=== PATIENT | male | born 1940 | race Caucasian/White ===

== ENCOUNTER → 2021-02-07 | Outpatient (CLI) | payer MEDICARE, BC ==
--- NOTE | 2021-02-09 00:35 | ECWPNPC ---
PATIENT NAME: FEDE MORRISON : 1940 GENDER: MALE VISIT DATE: 02/07/2021 DISCHARGE DATE: 02/07/21 1219 VISIT LOCKED DATE TIME: PHYSICIAN: ADAM FISHER RESOURCE: ADAM FISHER REASON FOR APPOINTMENT 1. URGENT REFERRAL NECK PAIN OCCIPITAL NEURALGIA HISTORY OF PRESENT ILLNESS DEPRESSION SCREENING: PHQ-2 (2015 EDITION) LITTLE INTEREST OR PLEASURE IN DOING THINGS?NOT AT ALL FEELING DOWN, DEPRESSED, OR HOPELESS?NOT AT ALL TOTAL SCORE0 GENERAL: 80-YEAR-OLD GENTLEMAN BEING REFERRED BY [facility] FOR SEVERE RIGHT SIDED NECK PAIN. ACCOMPANIED IN THE EXAM ROOM WITH HIS . PATIENT IS IN SEVERE DISCOMFORT AND IN TEARS DURING THE VISIT. HE DID NOT TAKE ANY PAIN MEDICATIONS PRIOR TO COMING BECAUSE HE WANTED US TO SEE HOW MUCH PAIN HE IS IN. PAIN BEGAN WITHOUT PRECIPITATING EVENT APPROXIMATELY 3 MONTHS AGO. IT SEEMED TO GET BETTER WITH PHYSICAL THERAPY AND THEN BECAME INTENSE AGAIN A FEW WEEKS AGO. PAIN IS LOCATED ALONG THE RIGHT LATERAL BASE OF CERVICAL REGION LEADING UP TO OCCIPITAL AREA. PAIN IS AGGRAVATED WITH FLEXION. CURRENTLY USING HYDROCODONE 5/325 PERIODICALLY FOR SEVERE PAIN EPISODES WITH VERY LITTLE RELIEF. ALSO IS TAKING GABAPENTIN 100MG BID, TIZANIDINE AND TRAMADOL WITH SMALL AMOUNT OF IMPROVEMENT. HAS HAD EXTENSIVE IMAGING OF THE NECK AND BRAIN WITHOUT SIGNIFICANT FINDINGS. HE IS UNABLE TO DO AN MRI DUE TO METAL FRAGMENTS IN HIS EYE THAT WAS PICKED UP ON CT IMAGING OF THE BRAIN. DENIES RECENT FEVER OR ILLNESS OR SUDDEN WEIGHT LOSS. DENIES BOWEL OR BLADDER INCONTINENCE. - - -. FALL RISK SCREENING: SCREENING ONE FALL DURING THE WINTER TIME, SLIP ON THE ICE ON HES WAY TO THE MAIL BOX , DID NOT GO THE ER, NO MAJOR INJUIRES. PAIN SCREENING: PATIENT HAS A COMPLAINT OF ACUTE OR CHRONIC PAIN :YES LOCATION OF PAIN:NECK INTENSITY OF PAIN (SCALE OF 1 TO 10):10 WHAT DOES YOUR PAIN FEEL LIKE:ACHING, SHARP, STABBING, TENDER DURATION:CONTINOUS, CONSTANT, ALL DAY, AWAKENS FROM SLEEP PAIN IS INCREASED BY:OTHERS IT DOES NOT MATTER WHAT HE DOES THE PAIN IS ALWAYS THERE PAIN IS DECREASED BY:OTHERS HEAT AND ICE MOSTLY NURSING NOTE: - - -. PAIN CENTER INTAKE QUESTIONS: DO YOU HAVE A HISTORY OF MRSA? :NO DO YOU TAKE A BLOOD THINNERS? :NO DO YOU HAVE ANY BLEEDING DISORDERS? :NO ANY NEW NUMBNESS OR WEAKNESS IN YOUR LEGS OR ARMS? :NO ANY PACEMAKER,DEFIBRILLATOR, OR DORSAL COLUMN STIMULATOR? :NO DO YOU HAVE ANY RASHES OR OPEN SORES? :NO RASH ON LEFT WRIST ARE YOU ALLERGIC TO IV DYE? :NO ARE YOU DIABETIC? :NO ANY NEW PROBLEMS WITH YOUR MEDICATIONS? :NO HAVE YOU RECEIVED A VACCINE IN THE PAST 30 DAYS? :NO MODERNA 1ST : 09/23/2020 2ND : 10/21/2020 DO YOU PLAN TO RECEIVE A VACCINE IN THE NEXT 21 DAYS? :NO DO YOU NEED ANY PRESCRIPTION? :NO DO YOU TAKE ANY IMMUNOSUPPRESSIVE MEDICATIONS? :NO IS THERE A CHANCE YOU COULD BE ? :NO ARE YOU BREAST FEEDING? :NO CURRENT MEDICATIONS TAKING COLACE 100 MG CAPSULE 1 CAPSULE NEEDED ORALLY ONCE A DAY TAKING IBUPROFEN 800 MG TABLET 1 TABLET WITH FOOD OR MILK NEEDED ORALLY THREE TIMES A DAY TAKING MULTIVITAMIN - TABLET 1 TABLET ORALLY ONCE A DAY TAKING TYLENOL 325 MG CAPSULE 1 CAPSULE NEEDED ORALLY EVERY 6 HRS TAKING VESICARE 10 MG TABLET 1 TABLET ORALLY ONCE A DAY TAKING VITAMIN D (CHOLECALCIFEROL) 25 MCG (1000 UT) CAPSULE 1 CAPSULE ORALLY ONCE A DAY TAKING AMLODIPINE BESYLATE 10 MG TABLET 1 TABLET ORALLY ONCE A DAY TAKING HYDROCHLOROTHIAZIDE 12.5 MG CAPSULE 1 TABLET IN THE MORNING ORALLY ONCE A DAY TAKING TIZANIDINE HCL 4 MG TABLET 1 TABLET NEEDED ORALLY THREE TIMES A DAY TAKING TRAMADOL HCL 50 MG TABLET 1 TABLET NEEDED ORALLY ONCE A DAY TAKING GABAPENTIN 100 MG CAPSULE 1 CAPSULE ORALLY TWICE TIMES DAILY NEEDED TAKING HYDROCODONE-ACETAMINOPHEN 5-325 MG TABLET 1 TABLET NEEDED ORALLY EVERY 6 HRS TAKING VOLTAREN-XR 75MG TAB NEEDED NOT-TAKING CELEBREX 100 MG CAPSULE 1 CAPSULE WITH FOOD ORALLY ONCE A DAY NOT-TAKING DICLOFENAC SODIUM 1 % GEL DIRECTED EXTERNALLY FOUR TIMES DAILY MEDICATION LIST REVIEWED AND RECONCILED WITH THE PATIENT PAST MEDICAL HISTORY HYPERTENSION SEVERE NECK PAIN T.U.R FOR BPH ONE FALL DURING THE WINTER TIME, SLIP ON THE ICE ON HES WAY TO THE MAIL BOX , DID NOT GO THE ER, NO MAJOR INJUIRES. ALLERGIES BACTRIM: DIARRHEA, FEVER - SIDE EFFECTS SURGICAL HISTORY CATARCT SURG BOTH EYES [id number] FAMILY HISTORY FATHER: ALIVE MOTHER: SIBLINGS: ALIVE SON(S): ALIVE DAUGHTER(S): UNKNOWN 2 BROTHER(S) , 1 SISTER(S) - HEALTHY. 1 SON(S) - HEALTHY. SOCIAL HISTORY GENERAL: TOBACCO USE ARE YOU A:NONSMOKER NEVER SMOKED LATEX QUESTIONNAIRE LATEX ALLERGY : HAVE YOU EVER DEVELOPED ANY TYPE OF REACTION AFTER HANDLING LATEX PRODUCTS SUCH RUBBER GLOVES, CONDOMS, DIAPHRAGMS, BALLOONS, SOCKS, OR UNDERWEAR?NO LATEX ALLERGY : HAVE YOU EVER DEVELOPED ANY TYPE OF REACTION DURING OR AFTER DENTAL APPOINTMENT, VAGINAL/RECTAL EXAMINATION, SURGICAL PROCEDURE, OR ANY OTHER EXPOSURE?NO LATEX RISK : HAVE YOU EVER HAD ANY DIFFICULTY BREATHING OR HIVES AFTER EATING OR HANDLING ANY FRUITS, OR VEGETABLES; SUCH KIWI, BANANAS, STONE FRUITS, OR CHESTNUTSNO LATEX RISK : DO YOU HAVE A PREVIOUS PERSONAL HISTORY OF MORE THAN NINE SURGERIES, SPINA BIFIDA, OR REPEATED CATHERIZATIONS? NO LATEX RISK : ARE YOU FREQUENTLY EXPOSED TO LATEX PRODUCTS IN YOUR OCCUPATION?NO DATE ASKED : 02/07/2021 ALCOHOL USE: YES, BEER LAST NIGHT, VERY RARELY. RECREATIONAL DRUG USE DRUG USE?NO LANGUAGE LANGUAGES SPOKEN:GERMAN LEARNING BARRIERS / SPECIAL NEEDS CHANGE FROM LAST VISIT?NO BARRIERS TO LEARNING?NO HEARING IMPAIRED?YES : LITTLE BIT OF HEARING LOST VISION IMPAIRED?YES :CORRECTIVE LENSES COGNITIVELY IMPAIRED?NO READINESS TO LEARN?YES LEARNING PREFERENCES?YES :BOOKLETS, HANDOUTS LEARNING CAPABILITIES PRESENT?YES EMOTIONAL BARRIERS?NO SPECIAL DEVICES?NO CHIEF CARDIOPULMONARY TECHNOLOGIST NEEDED?NO HIS WILL HELP HIM HOSPITALIZATION/MAJOR DIAGNOSTIC PROCEDURE SEE ABOVE REVIEW OF SYSTEMS CONSTITUTIONAL: ANY RECENT FEVER NO . CHILLS NO . WEIGHT CHANGE OF UNKNOWN REASONS NO . GASTROENTEROLOGY: NEW UNEXPLAINABLE CHANGES IN BOWEL CONTROL NO . CONSTIPATION NO . GENITOURINARY: ANY NEW CHANGE IN BLADDER CONTROL? NO . NEUROLOGY: NEW ONSET DIZZINESS OR NEUROLOGICAL CHANGES NOT MENTIONED NO . NEW NUMBNESS OR PAIN PATTERNS NOT MENTIONED AND PERTINENT TO TODAY'S VISIT NO . CARDIOLOGY: NEW CHEST PRESSURE NO . PATIENT DENIES NO . RESPIRATORY: UNEXPLAINABLE COUGH NO . NEW SHORTNESS OF BREATH NO . VITAL SIGNS WT 181 LBS, HT 68 IN, BMI 27.52 INDEX, BP 180/81 MM HG, HR 90 /MIN, RR 18 /MIN, TEMP 98.5 F, OXYGEN SAT % 96%, SAFE IN ENV? (Y/N) YES, NA INITIALS IN 11:20T.SANDY MA, PATIENT STATED THAT THE PATIENT HAVE NOT TAKING HIS BLOOD PRESSURE MEDICATION THIS MORNING. EXAMINATION GENERAL EXAMINATION: GENERAL ALERT,APPEARS VERY UNCOMFORTABLE. PSYCH WEEPY,AGITATED. FACE: SQUINTING HIS EYES/WINCING FREQUENTLY DUE TO SEVERE PAIN.. NECK:NO LYMPHADENOPATHY, SUPPLE, NO THYROMEGALLY. LUNGS:CLEAR TO AUSCULTATION BILATERALLY, NO WHEEZES, RHONCHI, RALES. HEART:NO MURMURS, REGULAR RATE AND RHYTHM. MUSCULOSKELETAL: MUSCLE STRENGTH TESTING 5/5 BILATERAL UPPER/LOWER EXTREMITIES. CERVICAL: HYPERSENSATIVE TO LIGHT PALPATION OVER RIGHT NECK AND OCCIPITAL NERVE. DIAGNOSTIC TESTS REVIEWED CT CERVICAL SPINE-12/18/2020 CT HEAD/NON [id number]-7-11-2021. 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 TODAY I HAVE TAKEN OVER MEDICATION MANAGEMENT FOR SEVERE PAIN HE IS EXPERIENCING. RECOMMEND INCREASING GABAPENTIN TO 300 MG ONE IN THE MORNING, GABAPENTIN 100 MG MID DAY AND 300 MG AT NIGHT. RECOMMEND INCREASING HYDROCODONE TO 10/325 ONE 3 TIMES DAILY. STOP TRAMADOL. CONSIDER ADDING TOPAMAX. PROCEDURE CODES FA211 ESTABILISHED PATIENT [facility] CHARGE DISPOSITION & COMMUNICATION FOLLOW UP DR SMITH F/U TO CONSIDER INJECTION WITH IV SEDATION (REASON: IV SEDATION AND PROCEDURE/OCCIPITAL NERVE BLOCK VERSUS TRIGGER POINT INJECTION TO RIGHT NECK. ) ELECTRONICALLY SIGNED BY JUVE LAUREN ON 02/08/2021 AT 12:41 PM EDT DISCLAIMER : THIS IS A VISIT SUMMARY EXTRACTED FROM THE [facility] CHART. IT IS NOT A COPY OF THE [facility] PROGRESS NOTE. VANDA
== END ==
LOC: M PAIN 11:15
PROVIDERS: ATTEND Nurse Practitioner Family
DX: M54.81 Occipital neuralgia (principal); I10 Essential (primary) hypertension; M54.2 Cervicalgia; N40.0 Benign prostatic hyperplasia without lower urinary tract symptoms; Z98.41 Cataract extraction status, right eye; Z98.42 Cataract extraction status, left eye; Z79.891 Long term (current) use of opiate analgesic; Z79.899 Other long term (current) drug therapy

== ENCOUNTER → 2021-03-04 | Outpatient (CLI) | payer MEDICARE, BC | LOC: M LABSMTC 13:26 | PROVIDERS: ATTEND Anesthesiology | DX: Z01.818 Encounter for other preprocedural examination (principal) ==

== ENCOUNTER → 2021-03-04 | Outpatient (CLI) | payer MEDICARE, BC ==
--- NOTE | 2021-03-09 02:27 | ECWPNPC ---
PATIENT NAME: FEDE MORRISON : 1940 GENDER: MALE VISIT DATE: 03/04/2021 DISCHARGE DATE: 03/04/21 1339 VISIT LOCKED DATE TIME: PHYSICIAN: ANGEL SMITH MD RESOURCE: ANGEL SMITH MD REASON FOR APPOINTMENT 1. IV SEDATION AND PROCEDURE/OCCIPITAL NERVE BLOCK VERSUS TRIGGER POINT INJECTION TO RIGHT NECK. HISTORY OF PRESENT ILLNESS GENERAL: 80-YEAR-OLD MALE PATIENT WITH A HISTORY OF NECK PAIN AND HEADACHES. THE PATIENT DESCRIBES THE PAIN BURNING, SHARP AND STABBING WITH A PAIN SCORE RANGING FROM 8-10/10 AT THE RIGHT TEMPORAL OCCIPITAL AREA. THIS STARTED 2 MONTHS AGO SPONTANEOUSLY. THIS IS AFFECTING HIS ABILITY TO DO ANY ACTIVITIES. HE CANNOT FUNCTION, HE CANNOT MOVE, HE CANNOT CONCENTRATE. HE RECEIVES MEDICATIONS THAT ARE NOT REALLY HELPING. HE HAD A TRIGGER POINT INJECTION THAT HELPED HIM FOR ABOUT 24 HOURS. THE PATIENT DENIES HISTORY OF TRAUMA OVER THE AREA. THE PATIENT DENIES NECK PAIN. THE PATIENT DENIES PAIN DOWN THE ARMS. FALL RISK SCREENING: SCREENING : MULTIPLE FALLS OVER THE LAST FEW MONTHS WITHOUT INJURY. PAIN SCREENING: PATIENT HAS A COMPLAINT OF ACUTE OR CHRONIC PAIN :YES LOCATION OF PAIN:HEAD, NECK INTENSITY OF PAIN (SCALE OF 1 TO 10):10 WHAT DOES YOUR PAIN FEEL LIKE:BURNING, SHARP, STABBING, SHOOTING, OTHER SENSATION OF TIGHTNESS OVER TOP OF HEAD DURATION:INTERMITTENT, BRIEF EPISODIC, INTENSE PAIN IS INCREASED BY:OTHERS IS SOMETIMES PRECIPITATED BY SHAKING HEAD LEFT TO RIGHT OR UP AND DOWN. NURSING NOTE: -. PAIN CENTER INTAKE QUESTIONS: DO YOU HAVE A HISTORY OF MRSA? :NO DO YOU TAKE A BLOOD THINNERS? :NO DO YOU HAVE ANY BLEEDING DISORDERS? :NO ANY NEW NUMBNESS OR WEAKNESS IN YOUR LEGS OR ARMS? :NO ANY PACEMAKER,DEFIBRILLATOR, OR DORSAL COLUMN STIMULATOR? :NO DO YOU HAVE ANY RASHES OR OPEN SORES? :NO ARE YOU ALLERGIC TO IV DYE? :NO ARE YOU DIABETIC? :NO ANY NEW PROBLEMS WITH YOUR MEDICATIONS? :NO HAVE YOU RECEIVED A VACCINE IN THE PAST 30 DAYS? :NO DO YOU PLAN TO RECEIVE A VACCINE IN THE NEXT 21 DAYS? :NO DO YOU NEED ANY PRESCRIPTION? :NO DO YOU TAKE ANY IMMUNOSUPPRESSIVE MEDICATIONS? :NO DO YOU HAVE ANY KIDNEY OR LIVER DISEASE? :NO IS THERE A CHANCE YOU COULD BE ? :NO ARE YOU BREAST FEEDING? :NO CURRENT MEDICATIONS TAKING COLACE 100 MG CAPSULE 1 CAPSULE NEEDED ORALLY ONCE A DAY TAKING IBUPROFEN 800 MG TABLET 1 TABLET WITH FOOD OR MILK NEEDED ORALLY THREE TIMES A DAY TAKING MULTIVITAMIN - TABLET 1 TABLET ORALLY ONCE A DAY TAKING TYLENOL 325 MG CAPSULE 1 CAPSULE NEEDED ORALLY EVERY 6 HRS TAKING VESICARE 10 MG TABLET 1 TABLET ORALLY ONCE A DAY TAKING VITAMIN D (CHOLECALCIFEROL) 25 MCG (1000 UT) CAPSULE 1 CAPSULE ORALLY ONCE A DAY TAKING AMLODIPINE BESYLATE 10 MG TABLET 1 TABLET ORALLY ONCE A DAY TAKING HYDROCHLOROTHIAZIDE 12.5 MG CAPSULE 1 TABLET IN THE MORNING ORALLY ONCE A DAY TAKING GABAPENTIN 100 MG CAPSULE 1 CAPSULE ORALLY TWICE TIMES DAILY NEEDED TAKING HYDROCODONE-ACETAMINOPHEN 5-325 MG TABLET 1 TABLET NEEDED ORALLY EVERY 6 HRS TAKING GABAPENTIN 100 MG CAPSULE 1 CAPSULE ORALLY TID TAKING HYDROCODONE-ACETAMINOPHEN 10-325 MG TABLET 1 TABLET NEEDED ORALLY Q8H PRN MDD3 TAKING IBUPROFEN 800 MG TABLET 1 TABLET WITH FOOD OR MILK NEEDED ORALLY THREE TIMES A DAY NOT-TAKING CELEBREX 100 MG CAPSULE 1 CAPSULE WITH FOOD ORALLY ONCE A DAY NOT-TAKING DICLOFENAC SODIUM 1 % GEL DIRECTED EXTERNALLY FOUR TIMES DAILY NOT-TAKING TIZANIDINE HCL 4 MG TABLET 1 TABLET NEEDED ORALLY THREE TIMES A DAY NOT-TAKING TRAMADOL HCL 50 MG TABLET 1 TABLET NEEDED ORALLY ONCE A DAY NOT-TAKING VOLTAREN-XR 75MG TAB NEEDED NOT-TAKING GABAPENTIN 300 MG CAPSULE 1 CAPSULE ORALLY AM AND PM MEDICATION LIST REVIEWED AND RECONCILED WITH THE PATIENT PAST MEDICAL HISTORY HYPERTENSION SEVERE NECK PAIN T.U.R FOR BPH ONE FALL DURING THE WINTER TIME, SLIP ON THE ICE ON HES WAY TO THE MAIL BOX , DID NOT GO THE ER, NO MAJOR INJUIRES. ALLERGIES BACTRIM: DIARRHEA, FEVER - SIDE EFFECTS SURGICAL HISTORY CATARCT SURG BOTH EYES [id number] HOSPITALIZATION/MAJOR DIAGNOSTIC PROCEDURE SEE ABOVE REVIEW OF SYSTEMS CONSTITUTIONAL: ANY RECENT FEVER NO . CHILLS NO . WEIGHT CHANGE OF UNKNOWN REASONS NO . GASTROENTEROLOGY: NEW UNEXPLAINABLE CHANGES IN BOWEL CONTROL NO . CONSTIPATION NO . GENITOURINARY: ANY NEW CHANGE IN BLADDER CONTROL? NO . NEUROLOGY: NEW ONSET DIZZINESS OR NEUROLOGICAL CHANGES NOT MENTIONED NO . NEW NUMBNESS OR PAIN PATTERNS NOT MENTIONED AND PERTINENT TO TODAY'S VISIT NO . CARDIOLOGY: NEW CHEST PRESSURE NO . PATIENT DENIES NO . RESPIRATORY: UNEXPLAINABLE COUGH NO . NEW SHORTNESS OF BREATH NO . VITAL SIGNS WT 179.0 LBS, HT 68 IN, BMI 27.21 INDEX, BP 178/84 MM HG, HR 78 /MIN, RR 18 /MIN, TEMP 97.1 F, OXYGEN SAT % 98%, SAFE IN ENV? (Y/N) Y, NA INITIALS AW 1132, REVIEWED BY: KALPESH. EXAMINATION GENERAL EXAMINATION: THE PATIENT IS ALERT, ORIENTED TIMES THREE AND COOPERATIVE. LUNGS ARE CLEAR TO AUSCULTATION. HEART SHOWS REGULAR RHYTHM, NO MURMURS AND NO GALLOPS. THERE IS TENDERNESS WHEN I PUT PRESSURE OVER THE RIGHT OCCIPITAL AREA, THIS CREATES PAIN OVER THE DISTRIBUTION OF THE GREATER AND LESSER OCCIPITAL AREA. THERE IS NOT TENDERNESS OVER THE TMJ AREA OR THE NECK. THE PATIENT SEEMS TO KEEP THE HEAD TO THE LEFT SIDE. HE REPORTS SOME GROUNDING SENSATION OVER THE NECK WHEN HE MOVES TO THE RIGHT. WHEN I MOVED THE HEAD TO THE RIGHT, IT RECREATED THE PAIN. WHEN THE PATIENT MOVES HIS HEAD TO THE LEFT, IT DOES NOT CREATE PAIN. CT DATED 12/18/2020 IS SHOWING SOME ARTHRITIS CHANGES. 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 MORRISON. I WOULD LIKE TO REQUEST AUTHORIZATION FOR A TRIGGER POINT INJECTION RIGHT NECK AND RIGHT GREATER AND LESSER OCCIPITAL NERVE BLOCKS, STARTING WITH THE TRIGGER POINT. WE WILL WATCH HIM AND THEN POSSIBLY WORK WITH HIS NECK OVER THE FACETS AFTER THAT. I WOULD LIKE TO REFER HIM FOR A NEUROLOGICAL EVALUATION. THE PATIENT REPORTS UNDERSTANDING AND AGREES WITH THE PLAN. I, JULIO C MUNIZ, DOCUMENTED THE ABOVE INFORMATION ACTING A SCRIBE FOR DR. SMITH. I HAVE REVIEWED THE ABOVE DOCUMENT, WRITTEN BY JULIO C MUNIZ, REACTOR OPERATOR, AND I VERIFY THAT IT IS ACCURATE. [facility] REASON: FACET ARTHROPATHY, CERVICAL REF[facility]AL [facility] REASON: OTHERS CLINICAL NOTES: PATIENT IS OBSERVED DURING ASSESSMENT TO HAVE A BFEIF PAIN OVER RIGHT EAR, FOLLOWED SUDDENLY BY INTENSE PAIN OVER TOP OF HEAD, PRECIPITATING PATIENT RESPONSE OF CRYING UNCONTROLLABY. THIS EPISODE OF PAIN LASTED APROXIMATELY THREE MINUTES BEFORE "COOLING DOWN". PATIENT WAS BRIEFLY CONVERSANT, AND EPISODE REPEATED ITSELF WITH A SHORTER EPISODE. REFERRAL TO: REASON:EVALUATE FOR POSSIBLE TRIGMINAL NEURALGIA PROCEDURE CODES FA211 ESTABILISHED PATIENT [facility] CHARGE 11006 OFFICE/OUTPATIENT VISIT EST DISPOSITION & COMMUNICATION FOLLOW UP REQUEST AUTHORIZATION FOR A TRIGGER POINT INJECTION RIGHT NECK AND REQUEST AUTH FOR RIGHT GREATER AND LESSER OCCIPITAL NERVE BLOCKS (REASON: REQUEST AUTHORIZATION FOR A TRIGGER POINT INJECTION RIGHT NECK AND REQUEST AUTH FOR RIGHT GREATER AND LESSER OCCIPITAL NERVE BLOCKS) ELECTRONICALLY SIGNED BY ANGEL SMITH MD, MD ON 03/08/2021 AT 11:29 AM EDT DISCLAIMER : THIS IS A VISIT SUMMARY EXTRACTED FROM THE [facility] CHART. IT IS NOT A COPY OF THE [facility] PROGRESS NOTE. VANDA
== END ==
LOC: M PAIN 11:15
PROVIDERS: ATTEND Anesthesiology
DX: M54.81 Occipital neuralgia (principal); M47.812 Spondylosis without myelopathy or radiculopathy, cervical region; G50.0 Trigeminal neuralgia; Z88.1 Allergy status to other antibiotic agents; Z79.899 Other long term (current) drug therapy; Z01.812 Encounter for preprocedural laboratory examination; Z20.822 Contact with and (suspected) exposure to COVID-19
CPT/HCPCS: G0463; U0003

== ENCOUNTER → 2021-03-09 | Outpatient (CLI) | payer MEDICARE, BC ==
[~2021-03-09] MED LIST: BUPIVACAINE HCL 0.25% 10ML VIAL As Ordered ONE; BUPIVACAINE HCL 0.25% 30ML VIAL As Ordered ONE; LIDOCAINE 1% SDV 30ML VIAL As Ordered ONE; NORCO, ANEXSIA 5/325MG TABLET (HYDROcodone/ACETAMINOPHEN) As Ordered ONE; TRIAMCINOLONE ACETONIDE SUSP 40 MG/ML VIAL (J3301) As Ordered ONE; diazePAM 2 MG TAB As Ordered ONE; diphenhydrAMINE 25MG CAP As Ordered ONE
--- NOTE | 2021-03-11 23:38 | ECWPNPC ---
PATIENT NAME: FEDE MORRISON : 1940 GENDER: MALE VISIT DATE: 03/09/2021 DISCHARGE DATE: 03/09/21 1311 VISIT LOCKED DATE TIME: PHYSICIAN: ANGEL SMITH MD RESOURCE: ANGEL SMITH MD REASON FOR APPOINTMENT 1. TRIGGER POINT INJECTION RIGHT NECK HISTORY OF PRESENT ILLNESS GENERAL: -. FALL RISK SCREENING: SCREENING : NO FALLS REPORTED IN THE LAST YEAR. PAIN SCREENING: PATIENT HAS A COMPLAINT OF ACUTE OR CHRONIC PAIN :YES LOCATION OF PAIN:HEAD INTENSITY OF PAIN (SCALE OF 1 TO 10):10 WHAT DOES YOUR PAIN FEEL LIKE:ACHING, BURNING, SHARP, SHOOTING DURATION:INTERMITTENT PAIN IS INCREASED BY:OTHERS PAIN IS DECREASED BY:OTHERS NURSING NOTE: -. PAIN CENTER INTAKE QUESTIONS: DO YOU HAVE A HISTORY OF MRSA? :NO DO YOU TAKE A BLOOD THINNERS? :NO DO YOU HAVE ANY BLEEDING DISORDERS? :NO ANY NEW NUMBNESS OR WEAKNESS IN YOUR LEGS OR ARMS? :NO ANY PACEMAKER,DEFIBRILLATOR, OR DORSAL COLUMN STIMULATOR? :NO DO YOU HAVE ANY RASHES OR OPEN SORES? :NO ARE YOU ALLERGIC TO IV DYE? :NO ARE YOU DIABETIC? :NO ANY NEW PROBLEMS WITH YOUR MEDICATIONS? :NO HAVE YOU RECEIVED A VACCINE IN THE PAST 30 DAYS? :NO DO YOU PLAN TO RECEIVE A VACCINE IN THE NEXT 21 DAYS? :NO DO YOU TAKE ANY IMMUNOSUPPRESSIVE MEDICATIONS? :NO ANY HISTORY OF SEIZURES? :NO ANY HISTORY OF CARDIAC ISSUES OR EVENTS? :NO DO YOU HAVE ANY KIDNEY OR LIVER DISEASE? :NO DO YOU HAVE SLEEP APNEA? :YES DO YOU WEAR A CPAP?NO ANY RECENT HEAD INJURY? :NO DO YOU HAVE ANY NEW INFECTIONS? :NO IS THERE A CHANCE YOU COULD BE ? :NO ARE YOU BREAST FEEDING? :NO WHEN DID YOU LAST EAT? : -03/08/21@ WHEN DID YOU LAST DRINK? : -03/09/21 @ 0745 WHAT DID YOU LAST DRINK? : - NAME OF PERSON DRIVING YOU HOME? : - DO YOU HAVE ANY OTHER QUESTIONS OR CONCERNS? : - CURRENT MEDICATIONS TAKING COLACE 100 MG CAPSULE 1 CAPSULE NEEDED ORALLY ONCE A DAY TAKING IBUPROFEN 800 MG TABLET 1 TABLET WITH FOOD OR MILK NEEDED ORALLY THREE TIMES A DAY TAKING MULTIVITAMIN - TABLET 1 TABLET ORALLY ONCE A DAY TAKING TYLENOL 325 MG CAPSULE 1 CAPSULE NEEDED ORALLY EVERY 6 HRS TAKING VESICARE 10 MG TABLET 1 TABLET ORALLY ONCE A DAY TAKING VITAMIN D (CHOLECALCIFEROL) 25 MCG (1000 UT) CAPSULE 1 CAPSULE ORALLY ONCE A DAY TAKING AMLODIPINE BESYLATE 10 MG TABLET 1 TABLET ORALLY ONCE A DAY TAKING HYDROCHLOROTHIAZIDE 12.5 MG CAPSULE 1 TABLET IN THE MORNING ORALLY ONCE A DAY TAKING GABAPENTIN 100 MG CAPSULE 1 CAPSULE ORALLY TWICE TIMES DAILY NEEDED TAKING HYDROCODONE-ACETAMINOPHEN 5-325 MG TABLET 1 TABLET NEEDED ORALLY EVERY 6 HRS TAKING GABAPENTIN 100 MG CAPSULE 1 CAPSULE ORALLY TID TAKING HYDROCODONE-ACETAMINOPHEN 10-325 MG TABLET 1 TABLET NEEDED ORALLY Q8H PRN MDD3 TAKING IBUPROFEN 800 MG TABLET 1 TABLET WITH FOOD OR MILK NEEDED ORALLY THREE TIMES A DAY NOT-TAKING CELEBREX 100 MG CAPSULE 1 CAPSULE WITH FOOD ORALLY ONCE A DAY NOT-TAKING DICLOFENAC SODIUM 1 % GEL DIRECTED EXTERNALLY FOUR TIMES DAILY NOT-TAKING TIZANIDINE HCL 4 MG TABLET 1 TABLET NEEDED ORALLY THREE TIMES A DAY NOT-TAKING TRAMADOL HCL 50 MG TABLET 1 TABLET NEEDED ORALLY ONCE A DAY NOT-TAKING VOLTAREN-XR 75MG TAB NEEDED NOT-TAKING GABAPENTIN 300 MG CAPSULE 1 CAPSULE ORALLY AM AND PM MEDICATION LIST REVIEWED AND RECONCILED WITH THE PATIENT PAST MEDICAL HISTORY HYPERTENSION SEVERE NECK PAIN T.U.R FOR BPH ONE FALL DURING THE WINTER TIME, SLIP ON THE ICE ON HES WAY TO THE MAIL BOX , DID NOT GO THE ER, NO MAJOR INJUIRES. ALLERGIES BACTRIM: DIARRHEA, FEVER - SIDE EFFECTS SOCIAL HISTORY GENERAL: TOBACCO USE ARE YOU A:NONSMOKER NEVER SMOKED LATEX QUESTIONNAIRE LATEX ALLERGY : HAVE YOU EVER DEVELOPED ANY TYPE OF REACTION AFTER HANDLING LATEX PRODUCTS SUCH RUBBER GLOVES, CONDOMS, DIAPHRAGMS, BALLOONS, SOCKS, OR UNDERWEAR?NO LATEX ALLERGY : HAVE YOU EVER DEVELOPED ANY TYPE OF REACTION DURING OR AFTER DENTAL APPOINTMENT, VAGINAL/RECTAL EXAMINATION, SURGICAL PROCEDURE, OR ANY OTHER EXPOSURE?NO DATE ASKED : 02/07/2021 LATEX RISK : HAVE YOU EVER HAD ANY DIFFICULTY BREATHING OR HIVES AFTER EATING OR HANDLING ANY FRUITS, OR VEGETABLES; SUCH KIWI, BANANAS, STONE FRUITS, OR CHESTNUTSNO LATEX RISK : DO YOU HAVE A PREVIOUS PERSONAL HISTORY OF MORE THAN NINE SURGERIES, SPINA BIFIDA, OR REPEATED CATHERIZATIONS? NO LATEX RISK : ARE YOU FREQUENTLY EXPOSED TO LATEX PRODUCTS IN YOUR OCCUPATION?NO ALCOHOL USE: YES, BEER LAST NIGHT, VERY RARELY. RECREATIONAL DRUG USE DRUG USE?NO LANGUAGE LANGUAGES SPOKEN:OMANI LEARNING BARRIERS / SPECIAL NEEDS CHANGE FROM LAST VISIT?NO BARRIERS TO LEARNING?NO HEARING IMPAIRED?YES VISION IMPAIRED?YES COGNITIVELY IMPAIRED?NO : LITTLE BIT OF HEARING LOST :CORRECTIVE LENSES READINESS TO LEARN?YES LEARNING PREFERENCES?YES :BOOKLETS, HANDOUTS LEARNING CAPABILITIES PRESENT?YES EMOTIONAL BARRIERS?NO SPECIAL DEVICES?NO ASSISTANT MANAGER PT NEEDED?NO HIS WILL HELP HIM VITAL SIGNS WT 179.8 LBS, HT 68 IN, BMI 27.34 INDEX, BP 156/88 MM HG, HR 78 /MIN, RR 18 /MIN, TEMP 97.2 F, OXYGEN SAT % 98%, NA INITIALS SC 10:06. EXAMINATION GENERAL: THE PATIENT IS ALERT, ORIENTED TIMES THREE AND COOPERATIVE. LUNGS ARE CLEAR TO AUSCULTATION. HEART SHOWS REGULAR RHYTHM, NO MURMURS AND NO GALLOPS. 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 TREATMENT OCCIPITAL NEURALGIA OF RIGHT SIDE MEDICATION: PAIN VALIUM TAB 2MG ORALLY (DIAZEPAM)SAJAN TELLES 03/09/2021 10:33:42 AM > VERIFIED. RONALDO MUHAMMAD 03/09/2021 10:37:02 AM > ADMINISTERED COMPLETION OF PROCEDURAL VISIT WHEN MEETS CRITERIARONALDO MUHAMMAD 03/09/2021 1:46:42 PM > CRITERIA MET @ 1310 MED: PAIN BENADRYL TAB 25MG ORALLY DIPHENHYDRAMINESAJAN TELLES 03/09/2021 10:33:52 AM > VERIFIED. RONALDO MUHAMMAD 03/09/2021 10:37:43 AM > ADMINISTERED MED: PAIN NORCO TABLET 5MG/325MG ORALLY HYDROCODONE/ACETAMINOPHENSAJAN TELLES 03/09/2021 10:34:03 AM > VERIFIED. RONALDO MUHAMMAD 03/09/2021 10:38:05 AM > ADMINISTERED DILEONARDO,JULIO C 03/09/2021 11:35:25 AM > SECOND DOSE ORDERED, VERIFIED BY ARLIN SHORT 03/09/2021 11:36:44 AM > VERIFIED. RONALDO MUHAMMAD 03/09/2021 11:40:59 AM > 2ND DOSE ADMINSTERED RONALDO MUHAMMAD 03/09/2021 12:35:56 PM > 2ND DOSE ADMINISTERED PROCEDURES PAIN NURSING RECORD PROCEDURE IN ROOM 0955, PHYSICIAN IN ROOM 1139, START 1141, FINISH 1215, PHYSICIAN OUT OF ROOM 1215, OUT OF ROOM 1310, ECG N/A, PATIENT SHIELDED N/A, SAFETY STRAP N/A, PREP ALCOHOL DR. SMITH, DRESSING N/A LOC: 1. ALERT, ORIENTEDSABINARONALDO 03/09/2021 11:39:45 AM > RESP: 1. REGULAR, NO DYSPNEASABINAD.[facility] 03/09/2021 11:39:59 AM > COLOR: 1. PINKSABINAD.[facility] 03/09/2021 11:40:04 AM > SKIN: 1. WARM, DRYSABINAD.[facility] 03/09/2021 11:40:09 AM > POSITION: 5. SITTINGSABINAD.[facility] 03/09/2021 11:40:16 AM > , 1. PRONE VITALS: EXIT VITALS HR 100, 153/94, 96%, R14, PAIN 10 1310 TBRADLEYRN NOTES Jesus MUHAMMAD RN COMPLETION OF PROCEDURE APPOINTMENT: POST PAIN 10, DRESSING SITE NO DRESSING, IV N/A, GAIT WHEELCHAIR, TEACHING COMPLETED, PATIENT ACKNOWLEDGES UNDERSTANDING YES, PROCEDURE APPOINTMENT COMPLETED AT 1310 PN TRIGGER POINT INJECTION WITH STEROIDS PRE PROCEDURE DIAGNOSIS 1. MYALGIA 2. PAIN AT RIGHT NECK AREA POST PROCEDURE DIAGNOSIS 1. MYALGIA 2. PAIN AT RIGHT NECK AREA PROCEDURE TRIGGER POINT INJECTION AT RIGHT NECK AREA SURGEON DR. ANGEL SMITH LABORATORY OPERATIONS COORDINATOR NONE ANESTHESIA LOCAL PRE PROCEDURE NOTE THE PATIENT HAS A HISTORY OF CHRONIC PAIN AT THE RIGHT NECK AREA. I EVALUATED THE PATIENT AND REVIEWED THE CHART. THERE IS EVIDENCE OF BANDS OF TISSUE WITH RESTRICTION OF MOVEMENT AND PRESENCE OF TRIGGER POINT AT THE RIGHT NECK AREA. I WENT OVER THE RISKS, ALTERNATIVES, AND BENEFITS ASSOCIATED WITH THIS PROCEDURE. THE PATIENT WOULD LIKE TO PROCEED AND GIVE CONSENT TO PERFORMED THE PROCEDURE. THE PATIENT DENIES UNEXPLAINABLE WEIGHT LOSS, FEVER, CHILLS, OR NEW CHANGES IN URINARY OR BOWEL CONTROL. THE PATIENT IS COVID-19 NEGATIVE DESCRIPTION OF PROCEDURE THE PATIENT WAS BROUGHT TO THE PROCEDURE ROOM AND PLACED IN THE SITTING POSITION. THE AREA WAS CLEANED WITH ALCOHOL. THE PROCEDURE WAS DONE USING ASEPTIC STERILE TECHNIQUE. A TIMEOUT WAS PERFORMED WHERE THE CONSENTED SITE WAS VERIFIED WITH EVERYONE IN THE ROOM. USING A 25-GAUGE NEEDLE, TRIGGER POINTS WERE INJECTED AT THE RIGHT NECK AREA WITH A TOTAL OF 40 ML OF BUPIVACAINE 0.25% AND KENALOG 40 MG. LIDOCAINE 30 ML WAS INJECTED INTO THE NECK IN DIVIDED DOSES. THE MEDICATIONS WERE VERIFIED WITH THE NURSE. THERE WAS NO EVIDENCE OF BLOOD OR PARESTHESIA DURING THE PROCEDURE. THE PATIENT WAS SENT TO THE RECOVERY ROOM. THE PATIENT WAS MOVING THE EXTREMITIES AND DOING WELL. THERE WERE NO COMPLICATIONS DURING THE PROCEDURE. ESTIMATED BLOOD LOSS WAS LESS THAN 5 ML POST PROCEDURE NOTE WE PERFORMED A TRIGGER POINT WHICH I EXPANDED TO OTHER AREAS OF THE NECK. THE PATIENT WAS VERY UNCOMFORTABLE DURING THE PROCEDURE. I AM REQUESTING URGENT CONSULTS TO OTHER SPECIALTIES. I WILL TRY TO CONTACT HIS PRIMARY. THE PROCEDURE DONE WAS DISCUSSED WITH THE PATIENT. THE PATIENT WILL BE SEEN IN A FOLLOW UP IN THE NEXT FEW WEEKS. I AM LOOKING FOR LONG LASTING PAIN RELIEF FOR THE PATIENT WITH THIS INTERVENTION. INSTRUCTIONS WERE GIVEN, QUESTIONS WERE ANSWERED, AND THE PATIENT EXPRESSED UNDERSTANDING AND AGREES WITH THE PLAN. I, JULIO C MUNIZ, DOCUMENTED THE ABOVE INFORMATION ACTING A SCRIBE FOR DR. SMITH. I HAVE REVIEWED THE ABOVE DOCUMENT, WRITTEN BY JULIO C MUNIZ, INTERNAL CONTROL ANALYST, AND I VERIFY THAT IT IS ACCURATE PROCEDURE CODES [id number] INJ TRIGGER POINT 09/04 [facility] DISPOSITION & COMMUNICATION FOLLOW UP F/UP NEXT WEEK DR. Dykes (REASON: POST TRIGGER POINT INJECTION RIGHT NECK) ELECTRONICALLY SIGNED BY ANGEL SMITH MD, MD ON 03/11/2021 AT 09:46 AM EDT DISCLAIMER : THIS IS A VISIT SUMMARY EXTRACTED FROM THE [employer] CHART. IT IS NOT A COPY OF THE [employer] PROGRESS NOTE. MTDD
== END ==
LOC: M PAIN 10:00
PROVIDERS: ATTEND Anesthesiology
DX: M79.18 Myalgia, other site (principal); M54.81 Occipital neuralgia; M47.812 Spondylosis without myelopathy or radiculopathy, cervical region; G47.30 Sleep apnea, unspecified; Z88.1 Allergy status to other antibiotic agents; Z79.899 Other long term (current) drug therapy
CPT/HCPCS: 20552; J3301

== ENCOUNTER → 2021-03-10 | Outpatient (CLI) | payer MEDICARE, BC ==
--- NOTE | 2021-03-16 08:33 | ECWPNPC ---
PATIENT NAME: FEDE MORRISON : 1940 GENDER: MALE VISIT DATE: 03/10/2021 DISCHARGE DATE: 03/10/21 0000 VISIT LOCKED DATE TIME: PHYSICIAN: ANGEL SMITH MD RESOURCE: ANGEL SMITH MD REASON FOR APPOINTMENT 1. MED REVIEW PER DR. Dykes HISTORY OF PRESENT ILLNESS GENERAL: PERMISSION FROM PATIENT WAS RECEIVED TO DO TELEPHONE OFFICE VISIT. 80-YEAR-OLD MALE PATIENT WITH A HISTORY OF CHRONIC RIGHT NECK PAIN ASSOCIATED WITH HEADACHES. THE PATIENT DESCRIBES THE PAIN STABBING ON OCCASION, ACHING AND SHARP WITH A PAIN SCORE RANGING FROM 0-2/10 OVER THE NECK AND 1-4/10 OVER THE EAR. THE PATIENT DID A TRIGGER POINT INJECTION YESTERDAY. BEFORE DOING THE TRIGGER POINT, THE PATIENT WAS HAVING SEVERE PAIN WITH A PAIN SCORE OF 10/10 IN THE NECK AND HEAD AREA. THE PATIENT IS SIGNIFICANTLY MORE COMFORTABLE TODAY. IN TERMS OF MEDICATIONS, DURING THE LAST WEEK, THE PATIENT HAS BEEN USING HYDROCODONE 5/325 TWICE A DAY AND AT NIGHT ONE 10 MG TABLET. THE PATIENT HAS BEEN TAKING GABAPENTIN 100 MG 3 TIMES A DAY AND IBUPROFEN 800 MG TABLETS 3 TIMES A DAY AND FLEXERIL 10 MG TABLETS 3 TIMES A DAY. HE IS USING TIZANIDINE 2 MG TABLETS 2 TIMES A DAY. THE PATIENT WAS GOING TO HAVE A NECK MRI DONE BUT WHEN THEY WENT TO PERFORM THE STUDY, THEY DID AN X-RAY AND THEY FOUND A PIECE OF METAL NEAR HIS EYE SO THEY DECIDED NOT TO DO THE MRI. FALL RISK SCREENING: SCREENING : SLIPPED ON ICE IN WINTER, DIDN'T REQUIRE MEDICAL INTERVENTION.. PAIN SCREENING: PATIENT HAS A COMPLAINT OF ACUTE OR CHRONIC PAIN :YES LOCATION OF PAIN:HEAD, NECK "RIGHT ABOVE THE EAR" INTENSITY OF PAIN (SCALE OF 1 TO 10):6 WHAT DOES YOUR PAIN FEEL LIKE:SHARP, STABBING DURATION:ONLY WITH SPECIFIC ACTIVITIES PAIN IS INCREASED BY:ACTIVITIES, OTHERS PAIN IS DECREASED BY:OTHERS PLAN/GOALS/TREATMENT/INTERVENTION/FOLLOW UP:SEE PLAN NURSING NOTE: -. PAIN CENTER INTAKE QUESTIONS: DO YOU HAVE A HISTORY OF MRSA? :NO DO YOU TAKE A BLOOD THINNERS? :NO DO YOU HAVE ANY BLEEDING DISORDERS? :NO ANY NEW NUMBNESS OR WEAKNESS IN YOUR LEGS OR ARMS? :NO ANY PACEMAKER,DEFIBRILLATOR, OR DORSAL COLUMN STIMULATOR? :NO DO YOU HAVE ANY RASHES OR OPEN SORES? :NO ARE YOU ALLERGIC TO IV DYE? :NO ARE YOU DIABETIC? :NO ANY NEW PROBLEMS WITH YOUR MEDICATIONS? :NO HAVE YOU RECEIVED A VACCINE IN THE PAST 30 DAYS? :NO DO YOU PLAN TO RECEIVE A VACCINE IN THE NEXT 21 DAYS? :NO DO YOU TAKE ANY IMMUNOSUPPRESSIVE MEDICATIONS? :NO DO YOU HAVE ANY KIDNEY OR LIVER DISEASE? :NO IS THERE A CHANCE YOU COULD BE ? :NO ARE YOU BREAST FEEDING? :NO CURRENT MEDICATIONS TAKING COLACE 100 MG CAPSULE 1 CAPSULE NEEDED ORALLY ONCE A DAY TAKING IBUPROFEN 800 MG TABLET 1 TABLET WITH FOOD OR MILK NEEDED ORALLY THREE TIMES A DAY TAKING MULTIVITAMIN - TABLET 1 TABLET ORALLY ONCE A DAY TAKING TYLENOL 325 MG CAPSULE 1 CAPSULE NEEDED ORALLY EVERY 6 HRS TAKING VESICARE 10 MG TABLET 1 TABLET ORALLY ONCE A DAY TAKING VITAMIN D (CHOLECALCIFEROL) 25 MCG (1000 UT) CAPSULE 1 CAPSULE ORALLY ONCE A DAY TAKING AMLODIPINE BESYLATE 10 MG TABLET 1 TABLET ORALLY ONCE A DAY TAKING HYDROCHLOROTHIAZIDE 12.5 MG CAPSULE 1 TABLET IN THE MORNING ORALLY ONCE A DAY TAKING GABAPENTIN 100 MG CAPSULE 1 CAPSULE ORALLY TWICE TIMES DAILY NEEDED TAKING GABAPENTIN 100 MG CAPSULE 1 CAPSULE ORALLY TID TAKING HYDROCODONE-ACETAMINOPHEN 10-325 MG TABLET 1 TABLET NEEDED ORALLY Q8H PRN MDD3 TAKING IBUPROFEN 800 MG TABLET 1 TABLET WITH FOOD OR MILK NEEDED ORALLY THREE TIMES A DAY TAKING HYDROCODONE-ACETAMINOPHEN 5-325 MG TABLET 1 TABLET NEEDED ORALLY FOR PAIN EVERY 8 HRS ( MDD 3) NOT-TAKING CELEBREX 100 MG CAPSULE 1 CAPSULE WITH FOOD ORALLY ONCE A DAY NOT-TAKING DICLOFENAC SODIUM 1 % GEL DIRECTED EXTERNALLY FOUR TIMES DAILY NOT-TAKING TIZANIDINE HCL 4 MG TABLET 1 TABLET NEEDED ORALLY THREE TIMES A DAY NOT-TAKING TRAMADOL HCL 50 MG TABLET 1 TABLET NEEDED ORALLY ONCE A DAY NOT-TAKING VOLTAREN-XR 75MG TAB NEEDED NOT-TAKING GABAPENTIN 300 MG CAPSULE 1 CAPSULE ORALLY AM AND PM MEDICATION LIST REVIEWED AND RECONCILED WITH THE PATIENT PAST MEDICAL HISTORY HYPERTENSION SEVERE NECK PAIN T.U.R FOR BPH ONE FALL DURING THE WINTER TIME, SLIP ON THE ICE ON HES WAY TO THE MAIL BOX , DID NOT GO THE ER, NO MAJOR INJUIRES. ALLERGIES BACTRIM: DIARRHEA, FEVER - SIDE EFFECTS SOCIAL HISTORY GENERAL: TOBACCO USE ARE YOU A:NONSMOKER NEVER SMOKED LATEX QUESTIONNAIRE LATEX ALLERGY : HAVE YOU EVER DEVELOPED ANY TYPE OF REACTION AFTER HANDLING LATEX PRODUCTS SUCH RUBBER GLOVES, CONDOMS, DIAPHRAGMS, BALLOONS, SOCKS, OR UNDERWEAR?NO LATEX ALLERGY : HAVE YOU EVER DEVELOPED ANY TYPE OF REACTION DURING OR AFTER DENTAL APPOINTMENT, VAGINAL/RECTAL EXAMINATION, SURGICAL PROCEDURE, OR ANY OTHER EXPOSURE?NO LATEX RISK : HAVE YOU EVER HAD ANY DIFFICULTY BREATHING OR HIVES AFTER EATING OR HANDLING ANY FRUITS, OR VEGETABLES; SUCH KIWI, BANANAS, STONE FRUITS, OR CHESTNUTSNO LATEX RISK : DO YOU HAVE A PREVIOUS PERSONAL HISTORY OF MORE THAN NINE SURGERIES, SPINA BIFIDA, OR REPEATED CATHERIZATIONS? NO LATEX RISK : ARE YOU FREQUENTLY EXPOSED TO LATEX PRODUCTS IN YOUR OCCUPATION?NO DATE ASKED : 03/10/2021 ALCOHOL USE: YES, BEER LAST NIGHT, VERY RARELY. RECREATIONAL DRUG USE DRUG USE?NO CHEONDOISM [id number] PRESBYTERIAN LANGUAGE LANGUAGES SPOKEN:VIETNAMESE LEARNING BARRIERS / SPECIAL NEEDS CHANGE FROM LAST VISIT?NO BARRIERS TO LEARNING?NO HEARING IMPAIRED?YES : LITTLE BIT OF HEARING LOSS VISION IMPAIRED?YES :CORRECTIVE LENSES COGNITIVELY IMPAIRED?NO READINESS TO LEARN?YES LEARNING PREFERENCES?YES :BOOKLETS, HANDOUTS LEARNING CAPABILITIES PRESENT?YES EMOTIONAL BARRIERS?NO SPECIAL DEVICES?NO HEAD GOLF PROFESSIONAL NEEDED?NO HIS WILL HELP HIM OCCUPATION: RETIRED. MARITAL STATUS: . REVIEW OF SYSTEMS CONSTITUTIONAL: ANY RECENT FEVER NO . CHILLS NO . WEIGHT CHANGE OF UNKNOWN REASONS NO . GASTROENTEROLOGY: NEW UNEXPLAINABLE CHANGES IN BOWEL CONTROL NO . CONSTIPATION NO . GENITOURINARY: ANY NEW CHANGE IN BLADDER CONTROL? NO . NEUROLOGY: NEW ONSET DIZZINESS OR NEUROLOGICAL CHANGES NOT MENTIONED NO . NEW NUMBNESS OR PAIN PATTERNS NOT MENTIONED AND PERTINENT TO TODAY'S VISIT NO . CARDIOLOGY: NEW CHEST PRESSURE NO . PATIENT DENIES NO . RESPIRATORY: UNEXPLAINABLE COUGH NO . NEW SHORTNESS OF BREATH NO . EXAMINATION GENERAL: THE PATIENT IS ALERT, ORIENTED TIMES THREE AND COOPERATIVE. THIS IS A TELEPHONE VISIT. CT OF THE CERVICAL SPINE IS SHOWING OSTEOARTHRITIC CHANGES. 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 TREATMENT FACET ARTHROPATHY, CERVICAL CLINICAL NOTES: I DISCUSSED ALTERNATIVES WITH MR. MORRISON. I WOULD LIKE TO LOOK FURTHER INTO THE POSSIBLE METAL NEAR HIS EYE. WE WILL CALL [facility] OR [facility]. IN TERMS OF MEDICATION MANAGEMENT, IN THE LAST WEEK, THE PATIENT HAS BEEN USING HYDROCODONE 5/325 MG TWICE A DAY AND ONE 10 MG TABLET AT NIGHT. WITH THE PRESCRIPTION THAT I GAVE HIM YESTERDAY, THE PATIENT IS COVERED FOR THE NEXT SEVERAL WEEKS. I DISCUSSED WITH THE PATIENT THAT THIS MEDICATION CAN CAUSE RESPIRATORY DEPRESSION. HE SHOULD NOT DRINK WITH THIS MEDICATION. HE SHOULD NOT USE MACHINERY OR DRIVE WHILE ON THIS MEDICATION. THERE IS POTENTIAL FOR ADDICTION TO THIS MEDICATION. HE WILL NOT LET ANYONE KNOW THAT HE HAS THIS MEDICATION AND HE WILL KEEP IT IN A SAFE PLACE. IF THE PAIN COMES BACK, WE CAN WORK OVER THE FACET JOINTS. TOTAL TIME FOR THIS VISIT IS 32 MINUTES. THE PATIENT WILL FOLLOW UP NEXT WEEK. THE PATIENT REPORTS UNDERSTANDING AND AGREES WITH THE PLAN. I, JULIO C MUNIZ, DOCUMENTED THE ABOVE INFORMATION ACTING A SCRIBE FOR DR. SMITH. I HAVE REVIEWED THE ABOVE DOCUMENT, WRITTEN BY JULIO C MUNIZ, MISSION SUPPORT SPECIALIST, AND I VERIFY THAT IT IS ACCURATE. . PROCEDURE CODES [id number] TELEMEDICINE PHONE E/M BY PHYS 21-30 MIN DISPOSITION & COMMUNICATION FOLLOW UP F/UP NEXT WEEK (REASON: POST PROCEDURE) ELECTRONICALLY SIGNED BY ANGEL SMITH MD, MD ON 03/11/2021 AT 03:50 PM EDT DISCLAIMER : THIS IS A VISIT SUMMARY EXTRACTED FROM THE [employer] CHART. IT IS NOT A COPY OF THE [employer] PROGRESS NOTE. MAGOD
== END ==
LOC: M PAIN 12:40
PROVIDERS: ATTEND Anesthesiology
DX: M47.812 Spondylosis without myelopathy or radiculopathy, cervical region (principal); M54.81 Occipital neuralgia; G89.29 Other chronic pain; Z88.1 Allergy status to other antibiotic agents; Z79.899 Other long term (current) drug therapy

== ENCOUNTER → 2021-03-17 | Outpatient (CLI) | payer MEDICARE, BC ==
--- NOTE | 2021-03-19 00:22 | ECWPNPC ---
PATIENT NAME: FEDE MORRISON : 1940 GENDER: MALE VISIT DATE: 03/17/2021 DISCHARGE DATE: 03/17/21 1141 VISIT LOCKED DATE TIME: PHYSICIAN: ANGEL SMITH MD RESOURCE: ANGEL SMITH MD REASON FOR APPOINTMENT 1. POST TRIGGER POINT INJECTION RIGHT NECK HISTORY OF PRESENT ILLNESS GENERAL: 80-YEAR-OLD MALE PATIENT WITH A HISTORY OF RIGHT NECK PAIN AND HEADACHES. THE PATIENT HAS BEEN SUFFERING FROM THIS FOR SEVERAL MONTHS. WE ARE WORKING WITH THE SITUATION OF THE NECK PAIN AND HEADACHES. WE DID A TRIGGER POINT INJECTION OVER THE NECK LAST WEEK. THE PATIENT REPORTS GOOD PAIN RELIEF. HE CAN FUNCTION BETTER. THE PATIENT DESCRIBES THE PAIN ACHING AND BURNING WITH A PAIN SCORE RANGING FROM 5-8/10. HE IS STILL USING THE MEDIATIONS OF MOTRIN, HYDROCODONE, AND A MUSCLE RELAXANT. THIS IS AFFECTING HIS ABILITY TO REST AND DO ACTIVITIES SUCH GROCERY SHOPPING. FALL RISK SCREENING: SCREENING : 1 FALL REPORTED IN THE LAST YEAR - NONE SINCE LAST VISIT. PAIN SCREENING: PATIENT HAS A COMPLAINT OF ACUTE OR CHRONIC PAIN :YES LOCATION OF PAIN:HEAD, NECK INTENSITY OF PAIN (SCALE OF 1 TO 10):6 WHAT DOES YOUR PAIN FEEL LIKE:BURNING DURATION:CONTINOUS PAIN IS INCREASED BY:ACTIVITIES, OTHERS WALKING, AIR HITTING HIS HEAD PAIN IS DECREASED BY:USE OF PAIN MEDICATIONS, OTHERS ICE, HEAT NURSING NOTE: -. PAIN CENTER INTAKE QUESTIONS: DO YOU HAVE A HISTORY OF MRSA? :NO DO YOU TAKE A BLOOD THINNERS? :NO DO YOU HAVE ANY BLEEDING DISORDERS? :NO ANY NEW NUMBNESS OR WEAKNESS IN YOUR LEGS OR ARMS? :NO ANY PACEMAKER,DEFIBRILLATOR, OR DORSAL COLUMN STIMULATOR? :NO DO YOU HAVE ANY RASHES OR OPEN SORES? :NO ARE YOU ALLERGIC TO IV DYE? :NO ARE YOU DIABETIC? :NO ANY NEW PROBLEMS WITH YOUR MEDICATIONS? :NO HAVE YOU RECEIVED A VACCINE IN THE PAST 30 DAYS? :NO DO YOU PLAN TO RECEIVE A VACCINE IN THE NEXT 21 DAYS? :NO DO YOU NEED ANY PRESCRIPTION? :NO DO YOU TAKE ANY IMMUNOSUPPRESSIVE MEDICATIONS? :NO DO YOU HAVE ANY KIDNEY OR LIVER DISEASE? :NO IS THERE A CHANCE YOU COULD BE ? :NO ARE YOU BREAST FEEDING? :NO CURRENT MEDICATIONS TAKING GABAPENTIN 300 MG CAPSULE 1 CAPSULE ORALLY BEFORE BEDTIME TAKING COLACE 100 MG CAPSULE 1 CAPSULE NEEDED ORALLY ONCE A DAY TAKING MULTIVITAMIN - TABLET 1 TABLET ORALLY ONCE A DAY TAKING TYLENOL 325 MG CAPSULE 1 CAPSULE NEEDED ORALLY EVERY 6 HRS TAKING VESICARE 10 MG TABLET 1 TABLET ORALLY ONCE A DAY TAKING VITAMIN D (CHOLECALCIFEROL) 25 MCG (1000 UT) CAPSULE 1 CAPSULE ORALLY ONCE A DAY TAKING AMLODIPINE BESYLATE 10 MG TABLET 1 TABLET ORALLY ONCE A DAY TAKING HYDROCHLOROTHIAZIDE 25 MG TABLET 1 TABLET IN THE MORNING ORALLY ONCE A DAY TAKING GABAPENTIN 100 MG CAPSULE 1 CAPSULE ORALLY TWICE TIMES DAILY NEEDED TAKING IBUPROFEN 800 MG TABLET 1 TABLET WITH FOOD OR MILK NEEDED ORALLY THREE TIMES A DAY TAKING HYDROCODONE-ACETAMINOPHEN 5-325 MG TABLET 1 TABLET NEEDED ORALLY FOR PAIN EVERY 8 HRS ( MDD 3) NOT-TAKING CELEBREX 100 MG CAPSULE 1 CAPSULE WITH FOOD ORALLY ONCE A DAY NOT-TAKING DICLOFENAC SODIUM 1 % GEL DIRECTED EXTERNALLY FOUR TIMES DAILY NOT-TAKING TIZANIDINE HCL 4 MG TABLET 1 TABLET NEEDED ORALLY THREE TIMES A DAY NOT-TAKING TRAMADOL HCL 50 MG TABLET 1 TABLET NEEDED ORALLY ONCE A DAY NOT-TAKING VOLTAREN-XR 75MG TAB NEEDED NOT-TAKING IBUPROFEN 800 MG TABLET 1 TABLET WITH FOOD OR MILK NEEDED ORALLY THREE TIMES A DAY, NOTES: DUPLICATE NOT-TAKING GABAPENTIN 100 MG CAPSULE 1 CAPSULE ORALLY TID, NOTES: DUPLICATE NOT-TAKING HYDROCODONE-ACETAMINOPHEN 10-325 MG TABLET 1 TABLET NEEDED ORALLY Q8H PRN MDD3 MEDICATION LIST REVIEWED AND RECONCILED WITH THE PATIENT PAST MEDICAL HISTORY HYPERTENSION SEVERE NECK PAIN T.U.R FOR BPH ONE FALL DURING THE WINTER TIME, SLIP ON THE ICE ON HES WAY TO THE MAIL BOX , DID NOT GO THE ER, NO MAJOR INJUIRES. ALLERGIES BACTRIM: DIARRHEA, FEVER - SIDE EFFECTS SOCIAL HISTORY GENERAL: TOBACCO USE ARE YOU A:NONSMOKER NEVER SMOKED LATEX QUESTIONNAIRE LATEX ALLERGY : HAVE YOU EVER DEVELOPED ANY TYPE OF REACTION AFTER HANDLING LATEX PRODUCTS SUCH RUBBER GLOVES, CONDOMS, DIAPHRAGMS, BALLOONS, SOCKS, OR UNDERWEAR?NO LATEX ALLERGY : HAVE YOU EVER DEVELOPED ANY TYPE OF REACTION DURING OR AFTER DENTAL APPOINTMENT, VAGINAL/RECTAL EXAMINATION, SURGICAL PROCEDURE, OR ANY OTHER EXPOSURE?NO LATEX RISK : HAVE YOU EVER HAD ANY DIFFICULTY BREATHING OR HIVES AFTER EATING OR HANDLING ANY FRUITS, OR VEGETABLES; SUCH KIWI, BANANAS, STONE FRUITS, OR CHESTNUTSNO LATEX RISK : DO YOU HAVE A PREVIOUS PERSONAL HISTORY OF MORE THAN NINE SURGERIES, SPINA BIFIDA, OR REPEATED CATHERIZATIONS? NO LATEX RISK : ARE YOU FREQUENTLY EXPOSED TO LATEX PRODUCTS IN YOUR OCCUPATION?NO DATE ASKED : 03/10/2021 ALCOHOL USE: YES, BEER LAST NIGHT, VERY RARELY. RECREATIONAL DRUG USE DRUG USE?NO ORTHODOXY [id number] [facility] LANGUAGE LANGUAGES SPOKEN:YORUBA LEARNING BARRIERS / SPECIAL NEEDS CHANGE FROM LAST VISIT?NO BARRIERS TO LEARNING?NO HEARING IMPAIRED?YES : LITTLE BIT OF HEARING LOSS VISION IMPAIRED?YES :CORRECTIVE LENSES COGNITIVELY IMPAIRED?NO READINESS TO LEARN?YES LEARNING PREFERENCES?YES :BOOKLETS, HANDOUTS LEARNING CAPABILITIES PRESENT?YES EMOTIONAL BARRIERS?NO SPECIAL DEVICES?NO CABLE MECHANIC NEEDED?NO HIS WILL HELP HIM OCCUPATION: RETIRED. MARITAL STATUS: . REVIEW OF SYSTEMS CONSTITUTIONAL: ANY RECENT FEVER NO . CHILLS NO . WEIGHT CHANGE OF UNKNOWN REASONS NO . GASTROENTEROLOGY: NEW UNEXPLAINABLE CHANGES IN BOWEL CONTROL NO . CONSTIPATION NO . GENITOURINARY: ANY NEW CHANGE IN BLADDER CONTROL? NO . NEUROLOGY: NEW ONSET DIZZINESS OR NEUROLOGICAL CHANGES NOT MENTIONED NO . NEW NUMBNESS OR PAIN PATTERNS NOT MENTIONED AND PERTINENT TO TODAY'S VISIT NO . CARDIOLOGY: NEW CHEST PRESSURE NO . PATIENT DENIES NO . RESPIRATORY: UNEXPLAINABLE COUGH NO . NEW SHORTNESS OF BREATH NO . VITAL SIGNS WT 176.6 LBS, HT 68 IN, BMI 26.85 INDEX, BP 128/92 MM HG, HR 80 /MIN, RR 18 /MIN, TEMP 99.1 F, OXYGEN SAT % 97%, SAFE IN ENV? (Y/N) YES, NA INITIALS SC 14:14, REVIEWED BY: Eben GARZA RN. EXAMINATION GENERAL: THE PATIENT IS ALERT, ORIENTED TIMES THREE AND COOPERATIVE. LUNGS ARE CLEAR TO AUSCULTATION. HEART SHOWS REGULAR RHYTHM, NO MURMURS AND NO GALLOPS. THERE IS TENDERNESS OVER THE RIGHT CERVICAL AREA. CT SCAN DATED 12/18/2020 SHOWS FACET ARTHROPATHY CHANGES. 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 MORRISON. WE AGREE ON REQUEST AUTH FOR ANOTHER TRIGGER POINT INJECTION RIGHT NECK. HE DID VERY WELL WITH THE FIRST ONE. WE TALKED ABOUT DOING FACET BLOCKS BUT IF THE TRIGGER POINT INJECTION IS WORKING THEN WE SHOULD CONTINUE WITH THAT BECAUSE IT IS LESS INVASIVE. HE IS GOING TO CONTINUE WITH THE MEDICATION WITH A PLAN TO REDUCE THE IBUPROFEN AFTER THE NEXT INJECTION. WE ARE TRYING TO REDUCE THE USE OF NSAIDS. IF THIS HELPS, WE WILL DISCUSS WITH HIS PRIMARY ABOUT HIM DOING THIS AT [facility]. HE IS PENDING A CONSULT WITH NEUROLOGICAL GROUP WHICH I THINK WILL HELP. THE PATIENT BROUGHT HIS MEDICATION TODAY. HE IS AWARE TO BE CAREFUL WITH THE USE OF THE NARCOTIC. WE ARE GOING TO DO A URINE TOX TO BE COMPLIANT WITH THE USE OF NARCOTIC. THE PATIENT REPORTS UNDERSTANDING AND AGREES I, JULIO C MUNIZ, DOCUMENTED THE ABOVE INFORMATION ACTING A SCRIBE FOR DR. SMITH. I HAVE REVIEWED THE ABOVE DOCUMENT, WRITTEN BY JULIO C MUNIZ, ROD BENDING MACHINE OPERATOR, AND I VERIFY THAT IT IS ACCURATE. PROCEDURE CODES FA211 ESTABILISHED PATIENT [facility] CHARGE [id number] OFFICE/OUTPATIENT VISIT EST DISPOSITION & COMMUNICATION FOLLOW UP REQUEST AUTH FOR TRIGGER POINT INJECTION RIGHT NECK (REASON: REQUEST AUTH FOR TRIGGER POINT INJECTION RIGHT NECK) ELECTRONICALLY SIGNED BY ANGEL SMITH MD, ON 03/18/2021 AT 11:27 AM EDT DISCLAIMER : THIS IS A VISIT SUMMARY EXTRACTED FROM THE [employer] CHART. IT IS NOT A COPY OF THE [employer] [employer] PROGRESS NOTE. MTDD
== END ==
LOC: M PAIN 14:15
PROVIDERS: ATTEND Anesthesiology
DX: G89.29 Other chronic pain (principal); M79.10 Myalgia, unspecified site; M79.18 Myalgia, other site; M47.812 Spondylosis without myelopathy or radiculopathy, cervical region; M54.81 Occipital neuralgia; I10 Essential (primary) hypertension; M54.2 Cervicalgia; Z79.891 Long term (current) use of opiate analgesic; Z79.899 Other long term (current) drug therapy; Z88.2 Allergy status to sulfonamides

== ENCOUNTER → 2021-04-12 | Outpatient (CLI) | payer MEDICARE, BC ==
[~2021-04-12] MED LIST changes: -LIDOCAINE 1% SDV 30ML VIAL As Ordered ONE; -NORCO, ANEXSIA 5/325MG TABLET (HYDROcodone/ACETAMINOPHEN) As Ordered ONE; -diazePAM 2 MG TAB As Ordered ONE; +diazePAM 5MG TABLET As Ordered ONE; +oxyCODONE 5MG TAB As Ordered ONE
--- NOTE | 2021-04-14 02:46 | ECWPNPC ---
PATIENT NAME: FEDE MORRISON : 1940 GENDER: MALE VISIT DATE: 04/12/2021 DISCHARGE DATE: 04/12/21 1108 VISIT LOCKED DATE TIME: PHYSICIAN: ANGEL SMITH MD RESOURCE: ANGEL SMITH MD REASON FOR APPOINTMENT 1. TRIGGER POINT INJECTION RIGHT NECK HISTORY OF PRESENT ILLNESS GENERAL: -. FALL RISK SCREENING: SCREENING : NO FALLS REPORTED IN THE LAST YEAR. PAIN SCREENING: PATIENT HAS A COMPLAINT OF ACUTE OR CHRONIC PAIN :YES LOCATION OF PAIN:HEAD, NECK RIGHT NECK INTENSITY OF PAIN (SCALE OF 1 TO 10):6 WHAT DOES YOUR PAIN FEEL LIKE:BURNING, CONTINOUS, SHARP DURATION:CONTINOUS, CONSTANT, RHYTHMIC PAIN IS INCREASED BY:ACTIVITIES BENDING, LYING ON BACK PAIN IS DECREASED BY:USE OF PAIN MEDICATIONS ICE NURSING NOTE: -. PAIN CENTER INTAKE QUESTIONS: DO YOU HAVE A HISTORY OF MRSA? :NO DO YOU TAKE A BLOOD THINNERS? :NO DO YOU HAVE ANY BLEEDING DISORDERS? :NO ANY NEW NUMBNESS OR WEAKNESS IN YOUR LEGS OR ARMS? :NO ANY PACEMAKER,DEFIBRILLATOR, OR DORSAL COLUMN STIMULATOR? :NO DO YOU HAVE ANY RASHES OR OPEN SORES? :NO ARE YOU ALLERGIC TO IV DYE? :NO ARE YOU DIABETIC? :NO ANY NEW PROBLEMS WITH YOUR MEDICATIONS? :NO HAVE YOU RECEIVED A VACCINE IN THE PAST 30 DAYS? :NO DO YOU PLAN TO RECEIVE A VACCINE IN THE NEXT 21 DAYS? :NO DO YOU TAKE ANY IMMUNOSUPPRESSIVE MEDICATIONS? :NO ANY HISTORY OF SEIZURES? :NO ANY HISTORY OF CARDIAC ISSUES OR EVENTS? :NO DO YOU HAVE ANY KIDNEY OR LIVER DISEASE? :NO DO YOU HAVE SLEEP APNEA? :YES DO YOU WEAR A CPAP?NO ANY RECENT HEAD INJURY? :NO DO YOU HAVE ANY NEW INFECTIONS? :NO IS THERE A CHANCE YOU COULD BE ? :NO ARE YOU BREAST FEEDING? :NO WHEN DID YOU LAST EAT? : 04/11 2000 WHEN DID YOU LAST DRINK? : 04/12 600 WHAT DID YOU LAST DRINK? : WATER NAME OF PERSON DRIVING YOU HOME? : - JUANJO DO YOU HAVE ANY OTHER QUESTIONS OR CONCERNS? : NONE CURRENT MEDICATIONS TAKING TIZANIDINE HCL 4 MG TABLET 1 TABLET NEEDED ORALLY THREE TIMES A DAY, NOTES: 04/11 2230 TAKING GABAPENTIN 300 MG CAPSULE 1 CAPSULE ORALLY BID, NOTES: 04/12 600 TAKING COLACE 100 MG CAPSULE 1 CAPSULE NEEDED ORALLY ONCE A DAY TAKING MULTIVITAMIN - TABLET 1 TABLET ORALLY ONCE A DAY TAKING TYLENOL 325 MG CAPSULE 1 CAPSULE NEEDED ORALLY EVERY 6 HRS TAKING VESICARE 10 MG TABLET 1 TABLET ORALLY ONCE A DAY TAKING VITAMIN D (CHOLECALCIFEROL) 25 MCG (1000 UT) CAPSULE 1 CAPSULE ORALLY ONCE A DAY TAKING AMLODIPINE BESYLATE 10 MG TABLET 1 TABLET ORALLY ONCE A DAY, NOTES: 04/11 1700 TAKING HYDROCHLOROTHIAZIDE 25 MG TABLET 1 TABLET IN THE MORNING ORALLY ONCE A DAY, NOTES: 04/11 170 TAKING IBUPROFEN 800 MG TABLET 1 TABLET WITH FOOD OR MILK NEEDED ORALLY THREE TIMES A DAY, NOTES: 04/12 0600 TAKING HYDROCODONE-ACETAMINOPHEN 5-325 MG TABLET 1 TABLET NEEDED ORALLY FOR PAIN EVERY 8 HRS ( MDD 3), NOTES: 04/11 2200 NOT-TAKING CELEBREX 100 MG CAPSULE 1 CAPSULE WITH FOOD ORALLY ONCE A DAY NOT-TAKING DICLOFENAC SODIUM 1 % GEL DIRECTED EXTERNALLY FOUR TIMES DAILY NOT-TAKING TRAMADOL HCL 50 MG TABLET 1 TABLET NEEDED ORALLY ONCE A DAY NOT-TAKING VOLTAREN-XR 75MG TAB NEEDED NOT-TAKING IBUPROFEN 800 MG TABLET 1 TABLET WITH FOOD OR MILK NEEDED ORALLY THREE TIMES A DAY, NOTES: DUPLICATE NOT-TAKING GABAPENTIN 100 MG CAPSULE 1 CAPSULE ORALLY TID, NOTES: DUPLICATE NOT-TAKING HYDROCODONE-ACETAMINOPHEN 10-325 MG TABLET 1 TABLET NEEDED ORALLY Q8H PRN MDD3 NOT-TAKING GABAPENTIN 100 MG CAPSULE 1 CAPSULE ORALLY TWICE TIMES DAILY NEEDED MEDICATION LIST REVIEWED AND RECONCILED WITH THE PATIENT PAST MEDICAL HISTORY HYPERTENSION SEVERE NECK PAIN T.U.R FOR BPH ONE FALL DURING THE WINTER TIME, SLIP ON THE ICE ON HES WAY TO THE MAIL BOX , DID NOT GO THE ER, NO MAJOR INJUIRES. ALLERGIES BACTRIM: DIARRHEA, FEVER - SIDE EFFECTS SOCIAL HISTORY GENERAL: TOBACCO USE ARE YOU A:NONSMOKER NEVER SMOKED LATEX QUESTIONNAIRE LATEX ALLERGY : HAVE YOU EVER DEVELOPED ANY TYPE OF REACTION AFTER HANDLING LATEX PRODUCTS SUCH RUBBER GLOVES, CONDOMS, DIAPHRAGMS, BALLOONS, SOCKS, OR UNDERWEAR?NO LATEX ALLERGY : HAVE YOU EVER DEVELOPED ANY TYPE OF REACTION DURING OR AFTER DENTAL APPOINTMENT, VAGINAL/RECTAL EXAMINATION, SURGICAL PROCEDURE, OR ANY OTHER EXPOSURE?NO LATEX RISK : HAVE YOU EVER HAD ANY DIFFICULTY BREATHING OR HIVES AFTER EATING OR HANDLING ANY FRUITS, OR VEGETABLES; SUCH KIWI, BANANAS, STONE FRUITS, OR CHESTNUTSNO LATEX RISK : DO YOU HAVE A PREVIOUS PERSONAL HISTORY OF MORE THAN NINE SURGERIES, SPINA BIFIDA, OR REPEATED CATHERIZATIONS? NO LATEX RISK : ARE YOU FREQUENTLY EXPOSED TO LATEX PRODUCTS IN YOUR OCCUPATION?NO DATE ASKED : 03/10/2021 ALCOHOL USE: YES, BEER LAST NIGHT, VERY RARELY. RECREATIONAL DRUG USE DRUG USE?NO JAINISM [id number] [facility] LANGUAGE LANGUAGES SPOKEN:YEMENI LEARNING BARRIERS / SPECIAL NEEDS CHANGE FROM LAST VISIT?NO BARRIERS TO LEARNING?NO HEARING IMPAIRED?YES : LITTLE BIT OF HEARING LOSS VISION IMPAIRED?YES :CORRECTIVE LENSES COGNITIVELY IMPAIRED?NO READINESS TO LEARN?YES LEARNING PREFERENCES?YES :BOOKLETS, HANDOUTS LEARNING CAPABILITIES PRESENT?YES EMOTIONAL BARRIERS?NO SPECIAL DEVICES?NO COMB WINDER NEEDED?NO HIS WILL HELP HIM OCCUPATION: RETIRED. MARITAL STATUS: . - HAS THE PATIENT BEEN EDUCATED REGARDING HIS/HER PLAN OF CARE?YES HAS THE PATIENT BEEN EDUCATED REGARDING PAIN, THE RISK FOR PAIN, THE IMPORTANCE OF EFFECTIVE PAIN MANAGEMENT, AND THE PAIN ASSESSMENT PROCESS?YES ADVANCE DIRECTIVE ADVANCE DIRECTIVE DISCUSSED WITH PATIENT:YES PT DOES NOT HAVE ANY ADVANCED DIRECTIVES. DECLINED INFORMATION ON HCP AT THIS TIME VITAL SIGNS WT 175.4 LBS, WT-KG 79.56 KG, HT 68 IN, BMI 26.67 INDEX, BP 136/81 MM HG, HR 68 /MIN, RR 18 /MIN, TEMP 98.7 F, OXYGEN SAT % 95%, SAFE IN ENV? (Y/N) Y, NA INITIALS AW 0841, REVIEWED BY: Tyler TREVIÑO RN. EXAMINATION GENERAL: THE PATIENT IS ALERT, ORIENTED TIMES THREE AND COOPERATIVE. LUNGS ARE CLEAR TO AUSCULTATION. HEART SHOWS REGULAR RHYTHM, NO MURMURS AND NO GALLOPS. ASSESSMENTS MYALGIA, UNSPECIFIED SITE - M79.10 (PRIMARY) TREATMENT MYALGIA, UNSPECIFIED SITE CONTINUE TIZANIDINE HCL TABLET, 2 MG, 1 TABLET NEEDED, ORALLY FOR SPAMSM AND PAIN, EVERY 6 HOURS NEEDED MDD3, 30 DAYS, 90, REFILLS 2, NOTES: 04/11 2230 CONTINUE GABAPENTIN CAPSULE, 300 MG, 1 CAPSULE, ORALLY FOR PAIN, BID MDD2, 30 DAYS, 60, REFILLS 2, NOTES: 04/12 0600 CONTINUE HYDROCODONE-ACETAMINOPHEN TABLET, 5-325 MG, 1 TABLET NEEDED, ORALLY FOR PAIN, EVERY 8 HRS ( MDD 3), 30 DAYS, 75, REFILLS 0, NOTES: 8/9 2200 MEDICATION: PAIN VALIUM TAB 5MG ORALLY (DIAZEPAM)[id number],NICOLE 04/12/2021 9:40:17 AM > VERIFIED JULIAN TREVIÑO 04/12/2021 9:42:41 AM > ADMINISTERED MEDICATION: PAIN OXYCODONE HCL TAB 5MG ORALLY [id number],NICOLE 04/12/2021 9:40:29 AM > VERIFIED JULIAN TREVIÑO 04/12/2021 9:43:00 AM > ADMINISTERED COMPLETION OF PROCEDURAL VISIT WHEN MEETS [id number],ANITA 04/12/2021 10:55:59 AM > CRITERIA MET @ 1049 MED: PAIN BENADRYL TAB 25MG ORALLY [id number],NICOLE 04/12/2021 9:40:43 AM > VERIFIED JULIAN TREVIÑO 04/12/2021 9:43:19 AM > ADMINISTERED CLINICAL NOTES: ISTOP NUMBER [id number] CHECKED. OTHERS CLINICAL NOTES: PAT COMPLETED 04/11/21 @ 1600 BY Tyler INMAN RN. PROCEDURES PAIN NURSING RECORD PROCEDURE IN ROOM 0840, PHYSICIAN IN ROOM 1020, START 1024, FINISH 1027, PHYSICIAN OUT OF ROOM 1032, OUT OF ROOM 1049, ECG N/A, PATIENT SHIELDED N/A, SAFETY STRAP N/A, PREP ALCOHOL, DRESSING TEGADERM LOC: BRIDGETTE TREVIÑOITA 04/12/2021 8:48:08 AM > 1. ALERT, ORIENTED RESP: KAMILAJULIAN 04/12/2021 8:48:22 AM > 1. REGULAR, NO DYSPNEA COLOR: KAMILAJULIAN 04/12/2021 8:48:28 AM > 1. PINK SKIN: KAMILAJULIAN 04/12/2021 8:48:32 AM > 1. WARM, DRY POSITION: KAMILA,JULIAN 04/12/2021 8:48:38 AM > 5. SITTING VITALS: KAMILA,JULIAN 04/12/2021 9:59:57 AM > 136/91,72,18,95% JULIAN TREVIÑO 04/12/2021 10:14:21 AM > 131/83,73,18,97% JULIAN TREVIÑO 04/12/2021 10:38:02 AM > 124/88,78,18,96% COMPLETION OF PROCEDURE APPOINTMENT: POST PAIN 6, DRESSING SITE DRY AND INTACT, IV N/A, GAIT WHEELCHAIR, TEACHING COMPLETED, PATIENT ACKNOWLEDGES UNDERSTANDING YES PRESENT FOR POST-PROCEDURE INSTRUCTIONS, PROCEDURE APPOINTMENT COMPLETED AT 1049 BY: Tyler TREVIÑO RN PN TRIGGER POINT INJECTION WITH STEROIDS PRE PROCEDURE DIAGNOSIS 1. MYALGIA 2. PAIN AT RIGHT NECK AREA POST PROCEDURE DIAGNOSIS 1. MYALGIA 2. PAIN AT RIGHT NECK AREA PROCEDURE TRIGGER POINT INJECTION AT RIGHT NECK AREA SURGEON DR. ANGEL SMITH DOCK MANAGER NONE ANESTHESIA LOCAL PRE PROCEDURE NOTE THE PATIENT HAS A HISTORY OF CHRONIC PAIN AT THE RIGHT NECK AREA. I EVALUATED THE PATIENT AND REVIEWED THE CHART. THERE IS EVIDENCE OF BANDS OF TISSUE WITH RESTRICTION OF MOVEMENT AND PRESENCE OF TRIGGER POINT AT THE RIGHT NECK AREA. I WENT OVER THE RISKS, ALTERNATIVES, AND BENEFITS ASSOCIATED WITH THIS PROCEDURE. THE PATIENT WOULD LIKE TO PROCEED AND GIVE CONSENT TO PERFORMED THE PROCEDURE. THE PATIENT DENIES UNEXPLAINABLE WEIGHT LOSS, FEVER, CHILLS, OR NEW CHANGES IN URINARY OR BOWEL CONTROL. THE PATIENT IS COVID-19 NEGATIVE DESCRIPTION OF PROCEDURE THE PATIENT WAS BROUGHT TO THE PROCEDURE ROOM AND PLACED IN THE SITTING POSITION. THE AREA WAS CLEANED WITH ALCOHOL. THE PROCEDURE WAS DONE USING ASEPTIC STERILE TECHNIQUE. A TIMEOUT WAS PERFORMED WHERE THE CONSENTED SITE WAS VERIFIED WITH EVERYONE IN THE ROOM. USING A 25-GAUGE NEEDLE, TRIGGER POINTS WERE INJECTED AT THE RIGHT NECK AREA WITH A TOTAL OF 40 ML OF BUPIVACAINE 0.25% AND KENALOG 40 MG. THE MEDICATIONS WERE VERIFIED WITH THE NURSE. THERE WAS NO EVIDENCE OF BLOOD OR PARESTHESIA DURING THE PROCEDURE. THE PATIENT WAS SENT TO THE RECOVERY ROOM. THE PATIENT WAS MOVING THE EXTREMITIES AND DOING WELL. THERE WERE NO COMPLICATIONS DURING THE PROCEDURE. ESTIMATED BLOOD LOSS WAS LESS THAN 5 ML POST PROCEDURE NOTE THE PROCEDURE DONE WAS DISCUSSED WITH THE PATIENT. THE PATIENT WILL BE SEEN IN A FOLLOW UP IN THE NEXT FEW WEEKS. I AM LOOKING FOR LONG LASTING PAIN RELIEF FOR THE PATIENT WITH THIS INTERVENTION. INSTRUCTIONS WERE GIVEN, QUESTIONS WERE ANSWERED, AND THE PATIENT EXPRESSED UNDERSTANDING AND AGREES WITH THE PLAN. I, JULIO C MUNIZ, DOCUMENTED THE ABOVE INFORMATION ACTING A SCRIBE FOR DR. SMITH. I HAVE REVIEWED THE ABOVE DOCUMENT, WRITTEN BY JULIO C MUNIZ, OPTICAL SYSTEMS ENGINEER, AND I VERIFY THAT IT IS ACCURATE VISIT CODES PROCEDURE CODES 83315 INJ TRIGGER POINT 09/04 [facility] [place] COMMUNICATION FOLLOW UP FOLLOW UP WITH AUTOMATIC BEAM WARPER TENDER (REASON: POST TRIGGER POINT INJECTION RIGHT NECK ) ELECTRONICALLY SIGNED BY ANGEL SMITH MD, MD ON 04/13/2021 AT 06:10 PM EDT DISCLAIMER : THIS IS A VISIT SUMMARY EXTRACTED FROM THE [employer] CHART. IT IS NOT A COPY OF THE [employer] PROGRESS NOTE. VANDA
== END ==
LOC: M PAIN 08:30
PROVIDERS: ATTEND Anesthesiology
DX: M79.18 Myalgia, other site (principal); Z88.1 Allergy status to other antibiotic agents; Z79.899 Other long term (current) drug therapy
CPT/HCPCS: 20552; J3301

== ENCOUNTER → 2021-05-17 | Outpatient (CLI) | payer MEDICARE, BC ==
[~2021-05-17] MED LIST changes: -diphenhydrAMINE 25MG CAP As Ordered ONE
== END ==
LOC: M PAIN 09:00
PROVIDERS: ATTEND Anesthesiology
DX: M79.18 Myalgia, other site (principal); M54.2 Cervicalgia; I10 Essential (primary) hypertension; Z79.891 Long term (current) use of opiate analgesic; Z79.899 Other long term (current) drug therapy; Z88.2 Allergy status to sulfonamides
CPT/HCPCS: 20552; J3301

== ENCOUNTER → 2021-06-02 | Outpatient (CLI) | payer MEDICARE, BC | LOC: M PAIN 10:30 | PROVIDERS: ATTEND Anesthesiology | DX: M47.812 Spondylosis without myelopathy or radiculopathy, cervical region (principal); M79.18 Myalgia, other site; I10 Essential (primary) hypertension; Z79.899 Other long term (current) drug therapy; Z88.2 Allergy status to sulfonamides ==

== ENCOUNTER → 2021-07-12 | Outpatient (CLI) | payer MEDICARE, BC | LOC: M PAIN 15:15 | PROVIDERS: ATTEND Anesthesiology | DX: M47.812 Spondylosis without myelopathy or radiculopathy, cervical region (principal); Z88.1 Allergy status to other antibiotic agents; Z79.899 Other long term (current) drug therapy ==